=== PATIENT | female | born 2000 | race Caucasian/White ===

== ENCOUNTER → 2020-10-15 18:41 | Outpatient (REF) | payer OTHER, SELFPAY ==
[2020-10-15 20:47] LABS: Abs Immature Grans 0.02 10^3/uL (0.0-0.06); Absolute Basophil Count 0.04 10^3/uL (0.0-0.2); Absolute Eosinophil Count 0.68 10^3/uL (0.0-0.7); Absolute Lymphocyte Count 2.61 10^3/uL (1.2-3.4); Absolute Monocyte Count 0.46 10^3/uL (0.1-0.8); Absolute Neutrophil Count 3.97 10^3/uL (1.2-6.7); Basophils % 0.5; Eosinophils % 8.7; Immature Grans % 0.3; Lymphocytes % 33.5; MCH 29.4 pg (27.0-33.0); MCHC 33.3 % (32.0-36.0); MCV 88.2 fL (80-95); MPV 9.4 fL (8.0-11.0); Monocytes % 5.9; Neutrophils % 51.1; Nucleated RBC 0 %; Platelet Count 268 10^3/uL (130-400); RBC 4.76 10^6/uL (3.93-5.22); RDW 12.7 % (11.7-14.6); RDW-SD 41.5 fL; WBC 7.78 10^3/uL (4.4-10.8)
[2020-10-15 21:22] LABS: ALT 18 U/L (14-59); AST 17 U/L (15-37); Albumin 4.5 g/dL (3.4-5.0); Alkaline Phosphatase 74 U/L (46-116); Anion Gap 9.5 mmol/L (3-11); BUN 11 mg/dL (7-18); Bilirubin, Total 1.1 mg/dL (0.2-1.0); CO2 25.5 mmol/L (21.0-32.0); CREATININE 0.74 mg/dL (0.55-1.02); Calcium 9.2 mg/dL (8.5-10.1); Chloride 104 mmol/L (98-107); Glucose 95 mg/dL (74-106); Potassium 3.7 mmol/L (3.5-5.1); Sodium 139 mmol/L (136-145); TSH (W/Ref FT4) 0.93 uIU/mL (0.36-3.74); Total Protein 7.5 g/dL (6.4-8.2)
[2020-10-15 22:02] LABS: ESR 3 mm/hr (0-20)
== END ==
LOC: NCHCN 18:41
PROVIDERS: PCP Physician Assistant Medical; Visit Provider Physician Assistant Medical
DX: R61 Generalized hyperhidrosis (principal); Z51.81 Encounter for therapeutic drug level monitoring; Z79.899 Other long term (current) drug therapy
CPT/HCPCS: 80053; 80175; 85652; 84443; 85025

== ENCOUNTER 2020-11-14 04:45 | Outpatient (CLI) | payer OTHER, SELFPAY ==
--- NOTE | 2020-11-14 | DI.CT_ITS ---
EXAM: CT CHEST/ABD/PEL W CLINICAL HISTORY: UNINTENTIONAL WT LOSS,R63.4,NIGHT SWEATS,R61 TECHNIQUE: Imaging Protocol: Axial computed tomography images with coronal and sagittal reformatted images were created and reviewed CONTRAST MATERIAL: Intravenous: Omnipaque 350 Contrast volume:80 mL Oral: Yes COMPARISON: No exams were available for comparison FINDINGS: CHEST: Tracheobronchial tree: Patent where visualized. Pulmonary parenchyma: No consolidation or dominant measurable mass. No architectural distortion. Visualized thyroid gland: Unremarkable. Mediastinum and Mackenzie: No dominant adenopathy or fluid collection. Pleura: No effusion or pneumothorax. Heart: The heart is not dilated. No coronary artery calcifications are seen. No pericardial effusion. Aorta: Thoracic aorta non-dilated. Lymph nodes: Within normal limits. Bones:Normal. Soft tissues: Unremarkable. ABDOMEN: Liver: There are few tiny hypodensities in the liver. They are too small for further characterizatio n but likely reflect small cysts. Normal density. Portal, Superior Mesenteric, and Splenic Veins: Unremarkable. Gallbladder and Biliary Tract: No radiodense calculus or dilation. Pancreas: Normal density, no abnormal calcifications or inflammatory process. Spleen: Normal. Adrenals: No masses seen. Kidneys: Normal size, contour and axis. No radiodense stones or obstructive uropathy. No masses seen. Abdominal Aorta: Abdominal portion non-dilated. Bowel: No obstruction or bowel wall thickening. No evidence of acute appendicitis. Peritoneal Cavity: No ascites, collection or mesenteric inflammatory response. No free air. Lymph Nodes: Within normal limits. Bones: Unremarkable. Soft Tissues: Unremarkable. PELVIS: Bladder: Symmetric distention, no gross wall thickening. Reproductive Organs: Unremarkable as visualized. There is an IUD in place. There is a 4.1 cm right o varian cyst. Lymph Nodes: Within normal limits. Bones: Within normal limits. IMPRESSION: 1. 4.1 cm right ovarian cyst. This likely reflects a functional cyst. If further imaging is warrant ed a pelvic ultrasound may be obtained. 2. No acute abdominal or pelvic process. 3. Unremarkable CT scan of the chest. RADIATION DOSE DELIVERED: 893.81mGy.cm Total DLP DATA REPOSITORY: All CT scans at this facility are submitted to the National Radiology Data Registry (NRDR) Dose Index Registry (DIR) with the [employer] ([employer]). RADIATION OPTIMIZATION: All CT scans at this facility use at least one of these dose optimization te chniques: automated exposure control; mA and/or kV adjustment per patient size (includes targeted exa ms where dose is matched to clinical indication); or iterative reconstruction.
[2020-11-14] MEDS: Breeza Beverage 473 ML BTL PO ×2 (07:31→07:32)
[2020-11-14] MEDS: Omnipaque 350 MG/ML 50 ML BTL PO (07:32)
[2020-11-14] MEDS: Normal Saline - Diluent 50 ML VIAL IV (08:54)
[2020-11-14] MEDS: Omnipaque 350 MG/ML 100 ML BTL IV (08:54)
[2020-11-14] MEDS: Normal Saline Flush 10 ML SYR IVP (08:55)
== END 2020-11-14 05:05 ==
PROVIDERS: PCP Nurse Practitioner Family; Visit Provider Family Medicine
DX: N83.201 Unspecified ovarian cyst, right side (principal); R63.4 Abnormal weight loss; R61 Generalized hyperhidrosis
CPT/HCPCS: 74177; 71260; J3490; Q9967

== ENCOUNTER 2020-12-05 16:47 | Outpatient (REF) | payer OTHER, SELFPAY ==
--- NOTE | 2020-12-05 14:00 | PAPFT_PTH ---
PATIENT: MAZIN HURT LOC: [facility] U#:[id number] AGE/SX: 20/F ROOM: RE12/05/[address]: Danielle Lynn : 2000 BED: DIS: 12/05/2020 SPEC #: [id number] RECD: 12/05/20 18:17 STATUS: FRANDY REQ #: [id number] WILSON: 12/05/20 14:[address]: Danielle Lynn DEPT: [facility] Cytology RECD BY: Tracey Pugh Tissues: 1 - CX/ENDOCX FOR PAP SMEARS Procedures: PAP THIN PREP/[facility] Screening Comments: [id number] (UNSATISFACTORY FOR EVALUATION)
== END 2020-12-05 17:07 ==
LOC: NCHCN 16:47
PROVIDERS: PCP Nurse Practitioner Family; Visit Provider Nurse Practitioner Family
DX: Z12.4 Encounter for screening for malignant neoplasm of cervix (principal); R87.615 Unsatisfactory cytologic smear of cervix; Z00.00 Encounter for general adult medical examination without abnormal findings
CPT/HCPCS: 88142